=== PATIENT | female | born 1970 | race Hispanic/Latino ===

== ENCOUNTER 2017-07-12 09:15 | Emergency (ER) | payer OTHER ==
[2017-07-12] MEDS ORDERED: Acetaminophen 500 MG TAB ONE (09:31)
--- NOTE | 2017-07-12 09:52 | RAD ---
1 VIEW CHEST: Date: 07/12/17 HISTORY: Syncope. COMPARISON: None. FINDINGS: Portable upright chest demonstrates normal cardiac silhouette. Pulmonary vessels and hilum are normal . Costophrenic angles are clear. No consolidation or mass. No pneumothorax or osseous abnormalities. IMPRESSION: No acute cardiopulmonary process. POS: [facility]
[2017-07-12 10:14] LABS: #Basophils 0.1 thou/uL (0.0-0.2); #Eosinphils 0.2 thou/uL (0.0-0.7); #Lymphocytes 1.6 thou/uL (1.20-3.40); #Monocytes 0.4 thou/uL (0.11-0.59); #Neutrophils 3.3 thou/uL (1.40-6.50); %Basophils 0.9 % (0.0-1.0); %Eosinophils 3.8 % (0.0-10.0); %Lymphocytes 28.8 % (21.0-51.0); %Monocytes 7.2 % (0.0-10.0); %Neutrophils 59.2 % (42.0-75.0); Hemoglobin 13.7 g/dL (12.0-16.0); Mean Corpuscular HGB CONC 33.2 g/dL (32.0-36.0); Mean Corpuscular Hemoglobin 31.5 pg (27.0-31.0); Mean Corpuscular Volume 94.7 fl (81.0-99.0); Mean Platelet Volume 8.1 fL (7.4-10.4); Platelet Count 231 thou/uL (130-400); RBC Distribution Width 11.6 % (11.5-14.5); Red Blood Cell (RBC) Count 4.37 mill/uL (4.20-5.40); White Blood Cell (WBC) Count 5.5 thou/uL (4.8-10.8)
[2017-07-12 10:32] LABS: ALT (SGPT) 15 U/L (8-55); AST (SGOT) 20 U/L (5-34); Albumin 3.2 g/dL (3.5-5.0); Alkaline Phosphatase 115 U/L (40-150); Anion Gap 13 mmol/L (10-20); BUN (Urea Nitrogen) 22 mg/dL (7.0-18.7); Bilirubin, Total 0.3 mg/dL (0.2-1.2); Calc. Creatinine Clearance 0 mL/min (70-130); Carbon Dioxide 24 mmol/L (22-29); Chloride 109 mmol/L (98-107); Estimated GFR-MDRD 45; Glucose 93 mg/dL (70-105); Potassium 4.2 mmol/L (3.5-5.1); Protein, Total 6.2 g/dL (6.0-8.3); Sodium 142 mmol/L (136-145)
[2017-07-12 10:37] LABS: CKMB 1.5 ng/mL (0-6.6); Troponin I Less than 0.010 ng/mL (< 0.028)
== END 2017-07-12 11:15 | disposition home or self-care (01) ==
LOC: ERS 09:15
DX: R55 Syncope and collapse (principal); I10 Essential (primary) hypertension; F41.9 Anxiety disorder, unspecified
CPT/HCPCS: 36415; 71045; 80053; 82553; 84484; 85025; 93005

== ENCOUNTER 2019-09-17 05:46 | Emergency (ER) | payer OTHER, SELFPAY ==
[2019-09-17] MEDS ORDERED: Metoprolol Tartrate 25 MG TAB ONE (06:02)
[2019-09-17] MEDS ORDERED: predniSONE 20 MG TAB ONE (06:44)
[2019-09-17] MEDS ORDERED: cloNIDine 0.1 MG TAB ONE (06:44)
[2019-09-17 07:07] LABS: Anion Gap 10 mmol/L (10-20); BUN (Urea Nitrogen) 30 mg/dL (7.0-18.7); Calc. Creatinine Clearance 0 mL/min (70-130); Calcium 9.1 mg/dL (7.8-10.44); Carbon Dioxide 27 mmol/L (22-29); Chloride 108 mmol/L (98-107); Estimated GFR-MDRD 35; Glucose 92 mg/dL (70-105); Sodium 141 mmol/L (136-145)
== END 2019-09-17 07:56 | disposition home or self-care (01) ==
LOC: ERS 05:46
DX: G51.0 Bell's palsy (principal); I10 Essential (primary) hypertension; Z91.14 Patient's other noncompliance with medication regimen; M32.9 Systemic lupus erythematosus, unspecified; F41.9 Anxiety disorder, unspecified
CPT/HCPCS: 36415; 80048; 99284; J7512

== ENCOUNTER 2019-09-21 22:33 | Emergency (ER) | payer SELFPAY | END 2019-09-21 23:48 | disposition home or self-care (01) | LOC: ERS 22:33 | DX: I10 Essential (primary) hypertension (principal); F41.9 Anxiety disorder, unspecified; Z79.899 Other long term (current) drug therapy | CPT/HCPCS: 93005 ==

== ENCOUNTER 2023-05-06 20:40 | Emergency (ER) | payer SELFPAY ==
[2023-05-06 22:43] LABS: SARS-CoV-2 NAA Rapid Test Not Detected (NotDetected)
== END 2023-05-06 23:05 | disposition home or self-care (01) ==
LOC: ERS 20:40
DX: B34.9 Viral infection, unspecified (principal); I10 Essential (primary) hypertension; Z20.822 Contact with and (suspected) exposure to COVID-19
CPT/HCPCS: 99283

== ENCOUNTER 2025-04-29 09:36 | Emergency (ER) | payer OTHER, SELFPAY | END 2025-04-29 11:49 | disposition home or self-care (01) | LOC: ERS 09:36 | DX: S51.851A Open bite of right forearm, initial encounter (principal); S61.551A Open bite of right wrist, initial encounter; S51.811A Laceration without foreign body of right forearm, initial encounter; S61.531A Puncture wound without foreign body of right wrist, initial encounter; S51.831A Puncture wound without foreign body of right forearm, initial encounter; I10 Essential (primary) hypertension; W54.0XXA Bitten by dog, initial encounter; Z23 Encounter for immunization; Z79.899 Other long term (current) drug therapy | CPT/HCPCS: 12002; 90471; 90715; 96365; 96375; J2270 ==